=== PATIENT | male | born 1960 | race Caucasian/White ===

== ENCOUNTER → 2016-03-29 | Outpatient (CLI) | payer BC ==
[~2016-03-29] MED LIST: ASPI81TA28 PO; CLON0.5T3 PO; EPP3/2 IM; FLM4 PO; IRBE-37 PO; LXP/20 PO
[2016-03-29 17:59] LABS: ALB/GLOB RATIO 1.1 (0.9-2); ALT/SGPT 49 U/L (12-78); AST/SGOT 38 U/L (15-37); BLOOD UREA NITROGEN 14 mg/dl (7-18); BUN/CREATININE RATIO 15.1 (10-20); CALCIUM 8.6 mg/dl (8.5-10.1); CARBON DIOXIDE 24 mmol/L (21-32); CHLORIDE 105 mmol/L (98-107); GLUCOSE 94 mg/dl (70-99); POTASSIUM 3.7 mmol/L (3.5-5.1); SODIUM 139 mmol/L (136-145); TRIGLYCERIDES 91 mg/dl (0-150); VERY LOW DENSITY LIPOPROT CALC 18 mg/dl
[2016-03-29 18:00] LABS: ALKALINE PHOSPHATASE 126 U/L (45-117); CHOLESTEROL 209 mg/dl (0-200); CHOLESTEROL/HDL RATIO 2.8; HDL CHOLESTEROL 74 mg/dl; LDL CHOLESTEROL CALCULATED 117 mg/dl
== END | disposition home or self-care (01) ==
LOC: C.LABBFT 15:09
PROVIDERS: ATTEND Internal Medicine
DX: E78.00 Pure hypercholesterolemia, unspecified (principal); I10 Essential (primary) hypertension

== ENCOUNTER → 2016-08-31 | Outpatient (CLI) | payer BC ==
--- NOTE | 2016-08-31 15:43 | DIAGNOSTIC IMAGING REPORT ---
TWO VIEW CHEST CLINICAL HISTORY: Malignant melanoma. FINDINGS: PA and lateral chest radiographs are compared to study dated 11/06/2015. The examination is degraded by large body habitus. The cardiomediastinal silhouette is unremarkable. The lungs and pleural spaces are clear. There is no pneumothorax. The bony thorax appears intact. Fusion hardware is partially imaged in the lower cervical spine and the upper lumbar spine. Degenerative change and mild scoliosis is seen in the thoracic spine. IMPRESSION: No active disease in the chest. Electronically signed by: Mike Butler M.D. 08/31/2016 3:42 PM Dictated Date/Time: 08/31/2016 3:41 PM
[2016-08-31 16:28] LABS: BASO % 0.7 %; BASO ABS # 0.04 K/uL (0-0.2); COMPLETE YES; EOS % 4.6 %; HEMATOCRIT 38.9 % (42-52); IG% 0.2 %; LYMPH % 17.7 %; LYMPH ABS # 1.04 K/uL (1.2-3.4); MEAN CELL VOLUME 98.7 fL (80-100); MEAN CORPUSCULAR HGB CONC 34.4 g/dl (32-36); MEAN PLATELET VOLUME 8.7 fL (7.4-10.4); MONO % 8.2 %; NEUT % 68.6 %; PLATELET COUNT 228 K/uL (130-400); RED BLOOD COUNT 3.94 M/uL (4.7-6.1); WHITE BLOOD COUNT 5.86 K/uL (4.8-10.8)
[2016-08-31 16:55] LABS: ALT/SGPT 43 U/L (12-78); AST/SGOT 39 U/L (15-37); BLOOD UREA NITROGEN 14 mg/dl (7-18); BUN/CREATININE RATIO 13.6 (10-20); CALCIUM 8.8 mg/dl (8.5-10.1); CARBON DIOXIDE 27 mmol/L (21-32); CHLORIDE 111 mmol/L (98-107); CREATININE 0.99 mg/dl (0.60-1.40); GLUCOSE 93 mg/dl (70-99); SODIUM 143 mmol/L (136-145)
[2016-08-31 16:57] LABS: ALKALINE PHOSPHATASE 136 U/L (45-117)
== END | disposition home or self-care (01) ==
LOC: C.RAD1850 15:19
PROVIDERS: ATTEND Dermatology
DX: C43.59 Malignant melanoma of other part of trunk (principal)

== ENCOUNTER → 2016-09-16 | Outpatient (CLI) | payer BC ==
[2016-09-16 12:25] LABS: BASO % 0.3 %; BASO ABS # 0.02 K/uL (0-0.2); COMPLETE YES; EOS % 1.3 %; HEMATOCRIT 44.3 % (42-52); IG% 0.1 %; LYMPH % 12.1 %; LYMPH ABS # 0.94 K/uL (1.2-3.4); MEAN CELL VOLUME 98.9 fL (80-100); MEAN CORPUSCULAR HEMOGLOBIN 34.6 pg (25-34); MEAN PLATELET VOLUME 9.3 fL (7.4-10.4); MONO % 5.2 %; PLATELET COUNT 256 K/uL (130-400); RED BLOOD COUNT 4.48 M/uL (4.7-6.1); WHITE BLOOD COUNT 7.74 K/uL (4.8-10.8)
[2016-09-16 12:59] LABS: FERRITIN 110.4 ng/ml (8.0-388.0)
== END | disposition home or self-care (01) ==
LOC: C.LABBFT 10:13
PROVIDERS: ATTEND Internal Medicine
DX: D64.9 Anemia, unspecified (principal)

== ENCOUNTER → 2016-11-03 | Day surgery (SDC) | payer BC ==
[2016-10-25 11:40] VITALS: Ht 180.3 cm; Wt 90.9 kg
[~2016-11-03] VITALS: Ht 180.3 cm; Wt 90.9 kg
[~2016-11-03] MED LIST changes: +EpHEDrine SULFATE 50MG/5ML SYR ONE; -FLM4 PO; +LIDOCAINE HCL 2% 2 ML VIAL (20MG/ML) ONE; -LXP/20 PO; +PROPOFOL IV EMULSION 10 MG/ML 20 ML VIAL IV ONE
--- NOTE | 2016-11-03 10:15 | Endo History and Physical ---
History & Physical Date of Service: Nov 03, 2016. Chief Complaint: HX OF POLYPS, SCREENING FOR COLON CANCER Referring Physician: DR. CASTILLO History of Present Illness 56 yo CM who presents for colonoscopy secondary to history of colon polyps. Past Surgical History Hx Cardiac Surgery: No Hx Internal Defibrillator: No Hx Pacemaker: No Hx Abdominal Surgery: No Hx of Implantable Prosthesis: No Hx Post-Op Nausea and Vomiting: No Hx Cancer Surgery: Yes (SKIN CANCER REMOVALS) Hx Thoracic Surgery: No Hx Orthopedic: Yes (LOW BACK SURGERY 1980, LT SHOULDER, LT KNEE) Hx Urinary Tract Surgery: No Family History None Social History Smoking Status: Never Smoker Hx Substance Use: No Hx Alcohol Use: Yes (OCCASIONAL) Allergies Coded Allergies: BEE STING (Verified Allergy, Severe, FACIAL SWELLING, 11/03/16) Penicillins (Verified Allergy, Unknown, UNKNOWN - HAPPENED WHEN YOUNGER, ) Current Medications Reported Home Medications Medications Dose Route/Sig Max Daily Dose Days Date Category Klonopin (Clonazepam) 0.5 Mg Tab 0.5 Mg PO BID PRN 10/25/16 Reported Avapro (Irbesartan) 150 Mg Tab 150 Mg PO QAM 10/25/16 Reported Epipen 2-Baldemar (Epinephrine) 0.3 Mg Inj 0.3 Mg IM UD PRN 09/08/14 Reported Vital Signs Weight (Kilograms): 90.91 Height (Feet): 5 Height (Inches): 11 Date Time Temp Pulse Resp B/P (MAP) Pulse Ox O2 Delivery O2 Flow Rate FiO2 11/03/16 09:57 36.3 81 18 166/96 (119) 95 Room Air Physical Exam General Appearance: WD/WN, no apparent distress Respiratory/Chest: Auscultation: breath sounds normal Cardiovascular: Heart Auscultation: RRR Abdomen: Bowel Sounds: normal Inspection & Palpation: soft, non-distended, no tenderness, guarding & rebound Assessment and Plan Assessment: 56 yo CM who presents for colonoscopy secondary to history of colon polyps. Plan: Proceed with colonoscopy.
--- NOTE | 2016-11-03 10:48 | Discharge Instructions ---
Endoscopy Patient Instructions Date / Procedure(s) Performed Nov 03, 2016. Colonoscopy Allergy Information Coded Allergies: BEE STING (Verified Allergy, Severe, FACIAL SWELLING, 11/03/16) Penicillins (Verified Allergy, Unknown, UNKNOWN - HAPPENED WHEN YOUNGER, ) Discharge Date / Findings Nov 03, 2016. Colon polyps Diverticulosis Internal hemorrhoids Medication Instructions OK to resume all medications today as prescribed Reported Home Medications Medications Dose Route/Sig Max Daily Dose Days Date Category Klonopin (Clonazepam) 0.5 Mg Tab 0.5 Mg PO BID PRN 10/25/16 Reported Avapro (Irbesartan) 150 Mg Tab 150 Mg PO QAM 10/25/16 Reported Epipen 2-Baldemar (Epinephrine) 0.3 Mg Inj 0.3 Mg IM UD PRN 09/08/14 Reported Provider Instructions Activity Restrictions - No exercising or heavy lifting for 24 hours. - Do not drink alcohol the day of the procedure. - Do not drive a car or operate machinery until the day after the procedure. - Do not make any important decisions or sign important papers in 24 hours after the procedure. Following Day: - Return to full activity which may include returning to work/school. Diet Start your diet with liquids and light foods (jello, soup, juice, toast). Then eat your usual diet if not nauseated. Treatment For Common After Affects For mild abdominal pain, bloating, or excessive gas: - Rest - Eat lightly - Lie on right side Follow-Up Information Follow-up with DR. CASTILLO as scheduled Anesthesia Information What You Should Know You have had a procedure that required some medicine to reduce anxiety and discomfort. This treatment is called moderate sedation. After receiving the treatment, you may be sleepy, but you will be able to breathe on your own. The effects of the treatment may last for several hours. Follow these instructions along with Activity/Diet recommendations noted above: * Do NOT do anything where dizziness or clumsiness would be dangerous. * Rest quietly at home today, then you can be up and about tomorrow. * Have a responsible person stay with you the rest of today. * You may have had an I.V. today. If so, you may take the dressing off later today. Recommendations Call your doctor if: * Trouble breathing * Continuous vomiting for more than 24 hours * Temperature above 101 degrees * Severe abdominal pain or bloating * Pain not relieved by pain medicine ordered * There is increased drainage or redness from any incision * A large amount of rectal bleeding greater than 2-3 tablespoons. (If you had a polyp/s removed or have hemorrhoids, a small amount of blood - from the rectum is to be expected.) * You have any unanswered questions or concerns. IN THE EVENT OF A SERIOUS EMERGENCY, GO TO THE NEAREST EMERGENCY ROOM Your discharge instructions were prepared by provider Martin Angulo. Patient Instructions Signature Page Finesse Adams Patient (or Guardian) Signature/Date: I have read and understand the instructions given to me by my caregivers. Caregiver/RN/Doctor Signature/Date: The above-named patient and/or guardian has received patient instructions on this date. + Original Patient Signature Page (only) stays with chart. Please make copy for patient.
--- NOTE | 2016-11-03 10:57 | GI REPORT ---
Procedure Date: 11/03/2016 10:17 AM Procedure: Colonoscopy Indications: Screening for colorectal malignant neoplasm Medicines: Monitored Anesthesia Care Complications: No immediate complications. Estimated Blood Loss: Estimated blood loss: none. Procedure: Pre-Anesthesia Assessment: - Prior to the procedure, a History and Physical was performed, and patient medications and allergies were reviewed. The patient's tolerance of previous anesthesia was also reviewed. The risks and benefits of the procedure and the sedation options and risks were discussed with the patient. All questions were answered, and informed consent was obtained. Prior Anticoagulants: The patient has taken no previous anticoagulant or antiplatelet agents. ASA Grade Assessment: II - A patient with mild systemic disease. After reviewing the risks and benefits, the patient was deemed in satisfactory condition to undergo the procedure. After I obtained informed consent, the scope was passed under direct vision. Throughout the procedure, the patient's blood pressure, pulse, and oxygen saturations were monitored continuously. The scope was introduced through the anus and advanced to the terminal ileum. The colonoscopy was performed without difficulty. The patient tolerated the procedure well. The quality of the bowel preparation was good. The terminal ileum, ileocecal valve, appendiceal orifice, and rectum were photographed. Findings: A 4 mm polyp was found in the cecum. The polyp was sessile. The polyp was removed with a cold snare. Resection and retrieval were complete. A 2 mm polyp was found in the cecum. The polyp was sessile. The polyp was removed with a cold biopsy forceps. Resection and retrieval were complete. A 5 mm polyp was found in the descending colon. The polyp was sessile. The polyp was removed with a cold snare. Resection and retrieval were complete. Multiple small-mouthed diverticula were found in the sigmoid colon. Non-bleeding internal hemorrhoids were found during retroflexion. The hemorrhoids were small. Impression: - One 4 mm polyp in the cecum, removed with a cold snare. Resected and retrieved. - One 2 mm polyp in the cecum, removed with a cold biopsy forceps. Resected and retrieved. - One 5 mm polyp in the descending colon, removed with a cold snare. Resected and retrieved. - Diverticulosis in the sigmoid colon. - Non-bleeding internal hemorrhoids. Recommendation: - Resume previous diet. - Continue present medications. - Repeat colonoscopy for surveillance based on pathology results. - Return to primary care physician as previously scheduled. Martin Angulo DO 11/03/2016 10:57:08 AM This report has been signed electronically. Note Initiated On: 11/03/2016 10:17 AM I attest to the content of the Intraoperative Record and orders documented therein, exceptions below
[2016-11-03 11:05] VITALS: BP 145/81; PULSE 72; O2SAT 95
--- NOTE | 2016-11-03 11:32 | Anesthesiology Progress Note ---
Anesthesia Post Op Note Date & Time Nov 03, 2016 at 11:32 Vital Signs Pain Intensity: 0 Vital Signs Past 12 Hours Date Time Temp Pulse Resp B/P (MAP) Pulse Ox O2 Delivery O2 Flow Rate FiO2 11/03/16 11:05 72 20 145/81 (102) 95 Room Air 11/03/16 10:55 76 20 137/79 (98) 95 Room Air 11/03/16 10:45 75 16 94/54 (67) 97 Room Air 11/03/16 09:57 36.3 81 18 166/96 (119) 95 Room Air Notes Mental Status: alert / awake / arousable, participated in evaluation Pt Amnestic to Procedure: Yes Nausea / Vomiting: adequately controlled Pain: adequately controlled Airway Patency, RR, SpO2: stable & adequate BP & HR: stable & adequate Hydration State: stable & adequate Anesthetic Complications: no major complications apparent
== END | disposition home or self-care (01) ==
LOC: C.GI 09:26
PROVIDERS: ATTEND Internal Medicine
DX: Z12.11 Encounter for screening for malignant neoplasm of colon (principal); D12.0 Benign neoplasm of cecum; D12.4 Benign neoplasm of descending colon; K57.30 Diverticulosis of large intestine without perforation or abscess without bleeding; K64.8 Other hemorrhoids; Z86.010 Personal history of colon polyps; Z85.820 Personal history of malignant melanoma of skin; I10 Essential (primary) hypertension; M19.90 Unspecified osteoarthritis, unspecified site; F41.9 Anxiety disorder, unspecified

== ENCOUNTER → 2017-03-21 | Outpatient (CLI) | payer BC ==
[~2017-03-21] MED LIST changes: -ASPI81TA28 PO; -EpHEDrine SULFATE 50MG/5ML SYR ONE; -LIDOCAINE HCL 2% 2 ML VIAL (20MG/ML) ONE; -PROPOFOL IV EMULSION 10 MG/ML 20 ML VIAL IV ONE
[2017-03-21 12:32] LABS: HEMATOCRIT 41.8 % (42-52); HEMOGLOBIN 14.7 g/dL (14.0-18.0); MEAN CELL VOLUME 97.4 fL (80-100); MEAN CORPUSCULAR HEMOGLOBIN 34.3 pg (25-34); MEAN CORPUSCULAR HGB CONC 35.2 g/dl (32-36); MEAN PLATELET VOLUME 9.4 fL (7.4-10.4); PLATELET COUNT 224 K/uL (130-400); RED CELL DISTRIBUTION WIDTH CV 11.9 % (11.5-14.5); RED CELL DISTRIBUTION WIDTH SD 42.2 fL (36.4-46.3); WHITE BLOOD COUNT 4.58 K/uL (4.8-10.8)
[2017-03-21 13:47] LABS: ALBUMIN 3.6 gm/dl (3.4-5.0); ALT/SGPT 37 U/L (12-78); BLOOD UREA NITROGEN 13 mg/dl (7-18); CALCIUM 8.8 mg/dl (8.5-10.1); CARBON DIOXIDE 25 mmol/L (21-32); CHOLESTEROL 197 mg/dl (0-200); CREATININE 0.84 mg/dl (0.60-1.40); GLUCOSE 100 mg/dl (70-99); POTASSIUM 4.3 mmol/L (3.5-5.1); SODIUM 138 mmol/L (136-145)
[2017-03-21 13:52] LABS: ALKALINE PHOSPHATASE 130 U/L (45-117); AST/SGOT 35 U/L (15-37); LDL CHOLESTEROL CALCULATED 113 mg/dl; TOTAL PROTEIN 7.5 gm/dl (6.4-8.2)
== END | disposition home or self-care (01) ==
LOC: C.LABBFT 08:03
PROVIDERS: ATTEND Nurse Practitioner
DX: E78.00 Pure hypercholesterolemia, unspecified (principal); E83.10 Disorder of iron metabolism, unspecified; Z12.5 Encounter for screening for malignant neoplasm of prostate

== ENCOUNTER → 2017-03-22 | Outpatient (CLI) | payer BC | END | disposition home or self-care (01) | LOC: C.LABBFT 12:18 | PROVIDERS: ATTEND Internal Medicine | DX: M25.50 Pain in unspecified joint (principal); R53.83 Other fatigue ==

== ENCOUNTER → 2017-09-23 | Outpatient (CLI) | payer BC ==
[~2017-09-23] MED LIST changes: -CLON0.5T3 PO; +KLN/5 PO
--- NOTE | 2017-09-23 09:04 | DIAGNOSTIC IMAGING REPORT ---
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 FINDINGS: The lungs are clear. The heart is normal in size. Mildly tortuous thoracic aorta, unchanged. Cervical spinal fusion hardware is again noted. Degenerative changes within the thoracic spine. IMPRESSION: No significant change compared to the prior study. No acute process. Electronically signed by: Gerald Aleman M.D. 09/23/2017 9:03 AM Dictated Date/Time: 09/23/2017 9:01 AM
[2017-09-23 09:52] LABS: BASO % 0.9 %; BASO ABS # 0.05 K/uL (0-0.2); EOS % 5.3 %; EOS ABS # 0.28 K/uL (0-0.5); HEMATOCRIT 39.6 % (42-52); IG# 0.01 K/uL (0.00-0.02); LYMPH % 19.9 %; LYMPH ABS # 1.05 K/uL (1.2-3.4); MEAN CELL VOLUME 97.1 fL (80-100); MEAN CORPUSCULAR HEMOGLOBIN 34.3 pg (25-34); MEAN CORPUSCULAR HGB CONC 35.4 g/dl (32-36); MEAN PLATELET VOLUME 9.5 fL (7.4-10.4); MONO % 6.6 %; MONO ABS # 0.35 K/uL (0.11-0.59); NEUT % 67.1 %; NEUT ABS # 3.53 K/uL (1.4-6.5); PLATELET COUNT 254 K/uL (130-400); RED CELL DISTRIBUTION WIDTH CV 11.8 % (11.5-14.5); RED CELL DISTRIBUTION WIDTH SD 42.3 fL (36.4-46.3); WHITE BLOOD COUNT 5.27 K/uL (4.8-10.8)
[2017-09-23 10:06] LABS: BLOOD UREA NITROGEN 14 mg/dl (7-18); CALCIUM 8.5 mg/dl (8.5-10.1); CARBON DIOXIDE 22 mmol/L (21-32); CREATININE 0.83 mg/dl (0.60-1.40); GLUCOSE 133 mg/dl (70-99); POTASSIUM 3.9 mmol/L (3.5-5.1); SODIUM 135 mmol/L (136-145)
== END | disposition home or self-care (01) ==
LOC: C.CPL 08:14
PROVIDERS: ATTEND Surgery
DX: D49.2 Neoplasm of unspecified behavior of bone, soft tissue, and skin (principal)

== ENCOUNTER 2019-02-23 06:35 | Observation (INO) ==
--- NOTE | 2019-01-19 10:55 | PAT Medication Instructions ---
Medication Instructions Date of Service January 19, 2019 Home Medications Medication Instructions Recorded epinephrine 0.3 mg/0.3 mL 0.3 ml IM UD #2 ea 10/11/18 injection, auto-injector vardenafil 20 mg tablet 20 mg PO DAILY PRN #9 tab 10/11/18 epinephrine 0.3 mg/0.3 mL injection, auto-injector 0.3 ml IM UD vardenafil 20 mg tablet 20 mg PO DAILY PRN amlodipine 5 mg PO QAM clonazepam 0.5 mg PO BID PRN irbesartan 300 mg PO QAM multivitamin 1 tab PO DAILY pravastatin 20 mg PO 1200 Continue as directed epinephrine 0.3 mg/0.3 mL injection, auto-injector 0.3 ml IM UD DO NOT take the morning of surgery vardenafil 20 mg tablet 20 mg PO DAILY PRN irbesartan 300 mg PO QAM multivitamin 1 tab PO DAILY Take morning of surgery With a small sip of water, OTHERWISE NOTHING TO EAT OR DRINK AFTER MIDNIGHT: amlodipine 5 mg PO QAM clonazepam 0.5 mg PO BID PRN (if needed) pravastatin 20 mg PO 1200 Other Notes If you have any questions please call us at [phone] or [phone] or [phone] or [phone]
--- NOTE | 2019-01-19 11:44 | Anesthesiology Consultation ---
Date of Service January 19, 2019 Assessment & Plan (1) Encounter for pre-operative examination: Chart Review Chart Review: Acceptable Risk for Surgery and Patient seen in Pre Admission Testing Teaching & Discussion Instructed NPO after midnight before surgery, except medications with 15 cc of water. Medication instructions provided according to the PAT guidelines. History Surgery Operation Date: 02/23/19 08:50 Proposed Procedures p Right Total Hip Replacement - iNcholas Daugherty MD Height/Weight Height: 5 ft 11 in Weight: 95 kg Allergies Allergy/AdvReac Type Severity Reaction Status Date / Time bee venom protein (honey bee) Allergy Severe FACIAL Verified 01/19/19 10:21 SWELLING Penicillins Allergy Unknown UNKNOWN - Verified 01/19/19 10:21 HAPPENED WHEN YOUNGER Medications Home Medications Medication Instructions Recorded Confirmed Last Taken epinephrine 0.3 mg/0.3 mL 0.3 ml IM UD #2 ea 10/11/18 01/19/19 Unknown injection, auto-injector vardenafil 20 mg tablet 20 mg PO DAILY PRN #9 tab 10/11/18 01/19/19 Unknown amlodipine 5 mg PO QAM 01/18/19 01/19/19 Unknown clonazepam 0.5 mg PO BID PRN 01/18/19 01/19/19 Unknown irbesartan 300 mg PO QAM 01/18/19 01/19/19 Unknown multivitamin 1 tab PO DAILY 01/18/19 01/19/19 Unknown pravastatin 20 mg PO 1200 01/18/19 01/19/19 Unknown Past Medical History Medical History Anxiety and depression Bunion, left (Acute) Degenerative joint disease of right hip GERD (gastroesophageal reflux disease) Hypercholesterolemia (Chronic) Hypertension (Chronic) Liver problem Congenitally small L hepatic lobe. Fatty liver dz. Malignant melanoma of back (Acute) REMOVED Osteoarthritis Exercise / Class Metabolic Activity II 4-5 Yardwork/Stairs/Walk up hill (Denies CP or SOB with 1 FOS) Past Family History Family History Sister Family history of diabetes mellitus Grandmother (Paternal) Family history of diabetes mellitus Past Surgical History Surgical History Fusion of spine LUMBAR CERVICAL (GOOD ROM) History of appendectomy History of colonoscopy Hx of knee surgery LEFT Hx of shoulder surgery RT/LEFT [place] teeth removed Past Anesthesia History No Hx of Anesthesia Complications and No Family Hx of Anesthesia Complications History of PONV No Hx of PONV and No Hx of Motion Sickness Social History tobacco type: smokeless tobacco Do You Dip or Chew Tobacco: Yes (1 CAN EVERY 3 DAYS (ADVISED)) Hx Alcohol Use: Yes Alcohol type: beer alcohol intake frequency: a few times a week Hx Substance Use: No substance use type: does not use Review of Systems Pt denies any recent chest pain, shortness of breath, palpitations, cough, fever or URI. Physical Exam Vital Signs BP: 143/83 P: 78bpm SPO2: 95% RA T: 98.3 F R: 16 ENMT Mouth: + dentures (partial lower); no chipped teeth and no loose teeth Thyromental Distance: > or= 3.5 Finger Breadths (4) Mallampati Class: I Neck normal visual inspection; neck extension not limited Respiratory normal respiratory effort Auscultation: lungs clear to auscultation bilaterally Cardiovascular Rate/Rhythm: regular rate and regular rhythm Heart Sounds: no murmur Vessels: no carotid bruit Extremities: no edema Testing Laboratory Results 01/19/19 11:55 01/19/19 11:55 PT 9.8 Seconds (9.0-12.0) 01/19/19 11:55 INR 1.0 (0.9-1.1) 01/19/19 11:55 APTT 27.9 Seconds (21.0-31.0) 01/19/19 11:55 Blood Type O Negative 01/19/19 11:55 Antibody Screen NEGATIVE 01/19/19 11:55 Electrocardiogram Date: 01/19/19 Findings: + NSR @ (74) Chest X-Ray Date: 01/19/19 Findings: + NAD
--- NOTE | 2019-01-19 12:16 | XRay Report ---
XR chest Pre-admission PA/Lat CLINICAL HISTORY: Preoperative chest COMPARISON STUDY: 11/06/2015 FINDINGS: The heart is normal in size. There is aortic tortuosity. There is no failure. There is no f ocal parenchymal consolidation. There are no pleural effusions. Postsurgical changes are present with in the cervical spine.[ IMPRESSION: No active disease in the chest. Electronically signed by: Immanuel Paniagua M.D. 01/19/2019 12:15 PM
[2019-01-19 12:20] LABS: Basophils # (auto) 0.03 K/uL (0-0.2); Basophils % (auto) 0.5 %; Eosinophils # (auto) 0.07 K/uL (0-0.5); Eosinophils % (auto) 1.2 %; Hematocrit (blood only) 39.5 % (42-52); Hemoglobin 13.7 g/dL (14.0-18.0); Lymphocytes # (auto) 0.89 K/uL (1.2-3.4); Lymphocytes % (auto) 15.7 %; Mean Corpuscular Hemoglobin 34.3 pg (25-34); Mean Corpuscular Hgb Conc 34.7 g/dL (32-36); Mean Platelet Volume 7.9 fL (7.4-10.4); Monocytes # (auto) 0.43 K/uL (0.11-0.59); Monocytes % (auto) 7.6 %; Neutrophils # (auto) 4.25 K/uL (1.4-6.5); Platelet Count 233 K/uL (130-400); RDW Coefficient of Variation 11.8 % (11.5-14.5); RDW Standard Deviation 42.7 fL (36.4-46.3); Red Blood Count 3.99 M/uL (4.7-6.1); White Blood Count 5.67 K/uL (4.8-10.8)
[2019-01-19 12:37] LABS: Partial Thromboplastin Time 27.9 Seconds (21.0-31.0); Prothrombin Time 9.8 Seconds (9.0-12.0)
[2019-01-19 13:43] LABS: BUN Creatinine Ratio 9.9 (10-20); Calcium 9.2 mg/dl (8.5-10.1); Creatinine Clr Calc Pharmacy 118.5 ml/min; Est GFR (African American) 113.7; Est GFR (Non-African American) 98.1; Potassium 4.5 mmol/L (3.5-5.1)
--- NOTE | 2019-02-17 14:29 | History and Physical Report ---
DATE OF ADMISSION: 02/23/2019 CHIEF COMPLAINT: Right hip pain. 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 He has a 1-year history of significantly increasing hip pain and discomfort that has gradually just gotten worse over time. He describes lateral hip pain, groin pain radiating down to his thigh, into his knee. No further than that. Denies any numbness. He does have a history of a pretty extensive back surgery in the done at [facility] and has done reasonably well from that. He has noticed that he is limping more and more as time goes on and more as the day goes on. He takes various anti-inflammatories with minimal relief. He has difficulty putting his shoes and socks on. He has nighttime pain. He would like to have his hip fixed. PAST MEDICAL HISTORY: 1. Elevated cholesterol. 2. Hypertension. 3. Significant alcohol intake with 12 drinks per week. PAST SURGICAL HISTORY: Include: 1. Left knee arthroscopy done by Dr. Mcmahon. 2. Bilateral shoulder surgery done by Dr. Peña. 3. Back surgery x2, last one done by Dr. López in the s in [place]. ALLERGIES: PENICILLIN, REACTIONS UNKNOWN. CURRENT MEDICINES: Include: 1. Amlodipine 5 mg. 2. Clonazepam 0.5 mg twice a day as needed. 3. Irbesartan 300 mg a day. 4. Multivitamin. 5. Pravastatin 20 mg. 6. Levitra 20 mg a day p.r.n. SOCIAL HISTORY: A 58-year-old male. He is from [place]. 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 Fairly sedentary job. 12 drinks per week. Does not smoke. FAMILY HISTORY: Noncontributory. REVIEW OF SYSTEMS: Negative for diabetes, neurologic problem, vascular problems or bleeding disorders. Denies any chest pain or shortness of breath. No history of DVT or PE. No known bleeding problems. PHYSICAL EXAMINATION: GENERAL: Shows a pleasant, middle-aged male. Looks to be in pretty good health. HEENT: Benign. NECK: Supple, no lymphadenopathy. LUNGS: Clear to auscultation. HEART: Regular rate and rhythm. ABDOMEN: Soft, nontender, nondistended. EXTREMITIES: Grossly neurovascularly intact except as follows. Examination of the right leg reveals the patient walks with a slight bit of a limp. Leg lengths appear clinically equal. He has a fairly stiff hip with internal rotation to neutral at best. This recreates his pain. External rotation to 20 degrees. No knee effusion. He is neurologically intact. X-RAYS: X-rays of the right hip were reviewed. Shows advanced right hip DJD. He has got complete loss of superior joint space with cystic changes on both sides of the joint.. He does have some subchondral sclerosis. He does have an extensive back fusion. ASSESSMENT: A 58-year-old male with advanced right hip degenerative joint disease of 1 year duration and progressive and unresponsive to conservative treatment. He does have significant back surgery in the past but back seems to be doing well. PLAN: We talked about treatment. He would like to have his right hip replaced. We will take him to the operating room and do right total hip replacement. The risks and benefits of this procedure were explained to the patient including but not limited to DVT, PE, , infection, neurological injury, vascular injury, bleeding problem, pain, limited range of motion, stiffness, failure to relieve symptoms, incomplete relief of symptoms, need for further surgery in future, fracture, leg length inequality, nerve palsy, dislocation, need for revision surgery, need for blood transfusion. The patient understands and desires to proceed. Informed consent was obtained. I did tell him he is at increased risk for dislocation due to his extensive back fusion. We will try and account for this and antevert the cup a little bit more than usual. He does have significant alcohol intake and will likely use some DVT prophylaxis while he is in the hospital. He is planning to be discharged home using [facility]. AGNIESZKA
[~2019-02-23 06:35] MED LIST changes: +ACETAMINOPHEN 500 MG TAB PO SCH; +BUPIVACAINE 0.5 % 5 MG/1 ML PF 10ML VIAL ONE; +CEFAZOLIN 2000MG 2,000 MG/15 ML SYR IV SCH; -EPP3/2 IM; +FAMOTIDINE 20 MG TAB PO SCH; +GABAPENTIN 600 MG DOSE PO SCH; -IRBE-37 PO; -KLN/5 PO; +LR 15ML/HR IV SCH; +LR 60ML/HR IV SCH; +METOCLOPRAMIDE HCL 10 MG TABLET PO SCH; +SCOPOLAMINE 1.5 MG TDSY TD SCH; +TRANEXAMIC ACID 1,000 MG **IV Pre-op IV SCH
--- NOTE | 2019-02-23 06:52 | History & Physical Bridge Note ---
Date of Service February 23, 2019 History & Physical Bridge Note I have examined the patient, reviewed the History & Physical and in the interval since the performance of the History & Physical I have noted the following changes of clinical significance: no changes noted
[2019-02-23] MEDS ORDERED: MIDAZOLAM HCL 1 MG/ML 2ML VIAL ONE ×3 (07:12→08:20)
[2019-02-23] MEDS ORDERED: MoRPHine SULFATE PF 1 MG/ML 10 ML AMP/VIAL ONE (07:17)
[2019-02-23] MEDS ORDERED: fentaNYL citrate 100 MCG/2 ML VIAL ONE (08:20)
[2019-02-23] MEDS ORDERED: BACITRACIN INJ 50,000 UNIT VIAL ONE (08:36)
[2019-02-23] MEDS ORDERED: BUPIVACAINE/EPINEPHRINE 0.5% MPF 1:200,000 10 ML VIAL ONE (08:36)
[2019-02-23] MEDS ORDERED: ATROPINE SULFATE 0.1 MG/ML 10ML SYR IV PRN (08:42)
[2019-02-23] MEDS ORDERED: LABETALOL HCL IV 5 MG/ML 20ML IV PRN (08:42)
[2019-02-23] MEDS ORDERED: fentaNYL citrate 100 MCG/2 ML VIAL IV PRN (08:42)
[2019-02-23] MEDS ORDERED: HYDROmorphone INJ 1 MG/ML SYRINGE IV PRN (08:42)
[2019-02-23] MEDS ORDERED: ONDANSETRON INJ 2 MG/ML 2 ML VIAL IV PRN ×2 (08:42→13:43)
[2019-02-23] MEDS ORDERED: ePHEDrine sulfate 50 MG/ML AMP IV PRN (08:42)
[2019-02-23] MEDS ORDERED: PHENYLEPHRINE 100MCG/ML 5ML SYR IV PRN (08:42)
[2019-02-23] MEDS ORDERED: PROPOFOL IV EMULSION 10 MG/ML 20 ML VIAL IV ONE (09:52)
[2019-02-23] MEDS ORDERED: ePHEDrine sulfate 50 MG/ML AMP ONE (09:53)
--- NOTE | 2019-02-23 10:16 | Post Operative Brief Note ---
PG Immediate Post Op with CF Date of Surgery February 23, 2019 Pre & Post Diagnosis Operation Date: 02/23/19 08:50 Pre-Op Diagnosis: Right Hip Degenerative Joint Disease Post-Op Diagnosis: Right Hip Degenerative Joint Disease I identified the patient and participated in the time-out.: Yes Procedure Operation Date: 02/23/19 08:50 Actual Procedures p Right Total Hip Replacement(Right) - Nicholas Daugherty MD Surgeon Nicholas Daugherty MD Lpn Instructor Noe, PAC Estimated Blood Loss 200 Findings Consistent with Post-Op Diagnosis Fluids 1500 cc Specimens Specimen Description: Permanent Solution: A: Right femoral head Drains Baker Catheter (16 belarusian 10 ml balloon) Anesthesia Type Spinal MAC Complications none Disposition Accompanied Patient To Recovery: Yes Disposition: Recovery Room
--- NOTE | 2019-02-23 10:55 | Anesthesiology Progress Note ---
Date of Service February 23, 2019 Anesthesia Post Procedure Vital Signs Vital Signs: Temp Pulse Pulse Resp BP Pulse Ox 02/23/19 10:45 78 21 105/61 98 02/23/19 10:35 78 20 88/56 L 96 02/23/19 10:25 75 17 85/55 L 96 02/23/19 10:18 36 C L 82 21 88/61 L 97 02/23/19 06:54 36.8 C 70 18 140/91 96 Pain Intensity Right Hip: Pain Intensity: 3 Transfer of Care Handoff Completed per policy Notes Mental Status: alert / awake / arousable Patient Amnestic to Procedure: Yes Nausea / Vomiting: adequately controlled Pain: adequately controlled Airway Patency, RR, SpO2: stable & adequate BP & HR: stable & adequate Hydration State: stable & adequate Neuraxial Anesthesia: was administered and sensory block is resolving Anesthetic Complications: no major complications apparent and Pt Satisfied with anesthetic care
--- NOTE | 2019-02-23 11:07 | XRay Report ---
XR hip 1V RT w pelvis CLINICAL HISTORY: IN PACU - A/P PELVIS and LATERAL HIP COMPARISON: None. DISCUSSION: Anatomic alignment posttotal right hip arthroplasty. Good contact between prosthetic and underlying bone. No evidence for acetabular protrusion. IMPRESSION: Anatomic alignment post total right hip arthroplasty. ACT 112: Negative or not required by law. The above report was generated using voice recognition software. It may contain grammatical, syntax or spelling errors. Electronically signed by: Valdez Salinas M.D. 02/23/2019 11:05 AM
[2019-02-23] MEDS ORDERED: TAMSULOSIN HCL 0.4 MG CAP PO PRN (11:18)
[2019-02-23] MEDS ORDERED: HYDROmorphone HCL 2 MG TAB PO PRN (11:18)
[2019-02-23] MEDS ORDERED: ALUMINUM/MAGNESIUM SUSP 30 ML UDC PO PRN (11:18)
[2019-02-23] MEDS ORDERED: bisacodyL 10 MG SUPP PR PRN (11:18)
[2019-02-23] MEDS ORDERED: VARDENAFIL PO PRN (11:18)
[2019-02-23] MEDS ORDERED: METOCLOPRAMIDE HCL INJ 5 MG/ML 2 ML VIAL IV PRN (11:18)
[2019-02-23] MEDS ORDERED: clonazePAM 0.5 MG TAB PO PRN (11:18)
[2019-02-23] MEDS ORDERED: NALOXONE HCL 0.4 MG/1 ML VIAL/CARP IV PRN (11:18)
[2019-02-23] MEDS ORDERED: MAGNESIUM HYDROXIDE SUSP 30 ML UDC PO PRN (11:18)
[2019-02-23] MEDS ORDERED: EPINEPHRINE ADULT AUTO-INJECT 0.3 MG SYR IM SCH (11:18)
[2019-02-23] MEDS: CHECK SCOPOLAMINE PATCH PLACEMENT SCH ×5 (11:57→23:25)
[2019-02-23] MEDS: PRAVASTATIN SOD 20 MG TAB PO SCH (13:39)
[2019-02-23] MEDS: KETOROLAC 30 MG/ML VIAL IV SCH ×3 (13:39→23:24)
[2019-02-23] MEDS: ACETAMINOPHEN 500 MG TAB PO SCH ×2 (13:39→21:25)
[2019-02-23] MEDS: SODIUM CHLORIDE 0.9% 1000ML 1,000 ML IV SCH ×2 (13:39→21:25)
[2019-02-23] MEDS ORDERED: HYDROmorphone INJ 0.5 MG/0.5 ML SYR IV PRN (13:43)
[2019-02-23] MEDS: CEFAZOLIN 2000MG 2,000 MG/15 ML SYR IV SCH ×2 (15:24→23:24)
[2019-02-23] MEDS ORDERED: TRANEXAMIC ACID / 0.7% NACL 1,000 MG/100 ML BAG IV SCH (16:00)
[2019-02-23] MEDS: FERROUS GLUCONATE 324 MG TAB PO SCH (17:46)
[2019-02-23] MEDS: ASCORBIC ACID 500 MG TAB PO SCH (17:46)
--- NOTE | 2019-02-23 18:11 | Operative Report ---
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 Had grade 4 [id number] disease of the femoral head and acetabulum. He had small anterior acetabular osteophytes. He had a moderate to large hip joint effusion. Fluids 1500 cc Specimens Right femoral head sent for pathology. Drains None. Anesthesia Type Spinal MAC Complications none Disposition Accompanied Patient To Recovery: Yes Disposition: Recovery Room Indications Patient is a 79-year-old very active gentleman whose had a several year history of gradually increasing right hip pain discomfort is gotten slightly worse over the past 6 to 12 months. He has been through extensive conservative treatment which became less successful over time. X-rays show advanced hip arthritis. Elected proceed with total hip arthroplasty. Description of Procedure Operative implants consisted of: 1. Biomet size 58 mm G7 acetabular shell. 2. Highly cross-linked polyethylene liner with a 58 mm outer diameter, 36 mm inner diameter with a shook placed inferior and posterior. 3. [place] hole eliminator. 4. 6.5 cancellus acetabular screws 135 mm length and 130 mm in length. 5. [place]ail size 13 KLA femoral stem. 6. +5/36 mm ceramic articular ball. Patient was taken to the operating room identified and placed on the operating table supine position protectors were properly padded. IV antibiotics were 5 by anesthesia team. Spinal anesthetic had been implemented holding area. Baker catheter was placed in sterile fashion. The patient then placed in the left lateral decubitus position. An axillary roll was placed. Stulberg hip positioner was used for positioning. The right hip and leg were then prepped and draped in usual sterile fashion. A posterior lateral approach of the right hip was then performed to over a curvilinear incision centered over the greater trochanter. Sharp dissection was gone through subcutaneous tissue down to the fascia and IT band. The IT band gluteal fascia incised longitudinally in a curvilinear incision in line with the skin incision. The underlying greater trochanter bursa was excised. The piriformis and external rotators were then tagged and taken off the posterior aspect of hip joint capsule. Great care was taken throughout the procedure to protect sciatic nerve at all times. Posterior capsulotomy was then performed leaving a large flap for later repair. Hip was internally rotated and dislocated. Femoral neck osteotomy cut was made with Final Cut felt 10 mm above the lesser trochanter. Femoral head was removed and sent for pathology. The femur was retracted anteriorly. Attention drawn the acetabulum. The acetabular labrum was excised per the pulmonary fat was excised. Sequential reaming the acetabulum was then performed given the size 49 progressing up to 57. A 58 mm Biomet G7 acetabular shell was then placed in about 40 degrees lateral opening and 20 degrees of anteversion. I actually placed in a little bit more anteversion than usual due to his back fusion I want to limit his the risk for dislocation. Small anterior osteophyte was removed. The cup was fixed with 2 screws. Trial liner was placed. Attention drawn the femur. Nipride the proximal femur was entered with a cookie-cutter followed by canal finder. I broached begin the size 8 and progressing up to 13. Got excellent fitted to 13. Calcar reamer was used smooth off the calcar. Then trialed the hip and the +5 articular ball provide full stability in full extension and external rotation flexion to 90 degrees internal rotation over 50 degrees. The soft tissue tension was little bit lax but thought the leg lengths are equal. I did not try the longer neck but I felt this was a bit too long. In order to maximize his stability in flexion I did place a shook inferior and posterior. All trial implants were removed and [place] eliminator was placed. Highly cross- linked polyethylene liner was placed. A size 13 KLA femoral stem was impacted in position followed by a +5/36 mm articular ball. Of note the liner was placed such that the shook was inferior and posterior. Hip was located once again found to be stable. Attention drawn toward closing. Nipride the posterior capsule and external rotators were then repaired through drill holes in the posterior trochanter with #2 Tycron suture. The IT band gluteal fascia then closed with #1 PDS suture in running fashion with subcutaneous tissue then closed with 2 layers the deep layer #1 Vicryl sutures subcutaneous tissues with 2 Dexon suture in a buried interrupted fashion. Skin was closed skin isha. Leg was then cleaned dried a sterile dressing applied Xeroform, 4 x 4's, ABD pads and foam tape was applied. The patient then transferred to the recovery room in stable condition. Patient tolerated procedure well no complications I attest to the content of the Intraoperative Record and any orders documented therein. Any exceptions are noted below.
[2019-02-23] MEDS ORDERED: SENNA 8.6 MG TAB PO SCH (21:00)
[2019-02-23] MEDS: DOCUSATE SODIUM 100 MG CAP PO SCH (21:24)
[2019-02-23] MEDS: TAPENTADOL HCL ER 50 MG TABCR PO SCH (21:24)
[2019-02-23] MEDS: ASPIRIN 81 MG ECTAB PO SCH (21:24)
[2019-02-24 02:29] VITALS: TEMP 98.2
[2019-02-24] MEDS: SODIUM CHLORIDE 0.9% 1000ML 1,000 ML IV SCH (05:10)
[2019-02-24] MEDS: CHECK SCOPOLAMINE PATCH PLACEMENT SCH (05:11)
[2019-02-24] MEDS: KETOROLAC 30 MG/ML VIAL IV SCH ×2 (05:59→11:24)
[2019-02-24] MEDS: ACETAMINOPHEN 500 MG TAB PO SCH (06:00)
[2019-02-24 06:45] LABS: Basophils # (auto) 0.02 K/uL (0-0.2); Basophils % (auto) 0.2 %; Eosinophils # (auto) 0.08 K/uL (0-0.5); Hematocrit (blood only) 32.6 % (42-52); Immature Granulocytes # (auto) 0.02 K/uL (0.00-0.02); Immature Granulocytes % (auto) 0.2 %; Lymphocytes # (auto) 0.43 K/uL (1.2-3.4); Lymphocytes % (auto) 5.3 %; Mean Corpuscular Hemoglobin 33.6 pg (25-34); Mean Corpuscular Hgb Conc 33.7 g/dL (32-36); Mean Corpuscular Volume 99.7 fL (80-100); Monocytes # (auto) 0.51 K/uL (0.11-0.59); Monocytes % (auto) 6.3 %; Neutrophils # (auto) 6.99 K/uL (1.4-6.5); Platelet Count 195 K/uL (130-400); RDW Standard Deviation 44.1 fL (36.4-46.3); Red Blood Count 3.27 M/uL (4.7-6.1); White Blood Count 8.05 K/uL (4.8-10.8)
[2019-02-24 07:20] LABS: Calcium 8.2 mg/dl (8.5-10.1); Creatinine Clr Calc Pharmacy 109.9 ml/min; Est GFR (African American) 110.1; Potassium 4.1 mmol/L (3.5-5.1)
[2019-02-24] MEDS: DOCUSATE SODIUM 100 MG CAP PO SCH (07:40)
[2019-02-24] MEDS: ASCORBIC ACID 500 MG TAB PO SCH (07:40)
[2019-02-24] MEDS: ASPIRIN 81 MG ECTAB PO SCH (07:40)
[2019-02-24] MEDS: FERROUS GLUCONATE 324 MG TAB PO SCH (07:41)
[2019-02-24] MEDS: TAPENTADOL HCL ER 50 MG TABCR PO SCH (07:41)
[2019-02-24 07:51] VITALS: O2SAT 97
[2019-02-24] MEDS ORDERED: chlordiazePOXIDE HCl 25 MG CAP PO PRN (08:43)
[2019-02-24] MEDS ORDERED: TRAMADOL HCL 50 MG TABLET PO PRN (08:45)
[2019-02-24] MEDS ORDERED: FOLIC ACID 1 MG TAB PO SCH (09:00)
[2019-02-24] MEDS ORDERED: MULTIVITAMIN TAB PO SCH ×2 (09:00)
[2019-02-24] MEDS ORDERED: THIAMINE HCL 100 MG TAB PO SCH (09:00)
[2019-02-24] MEDS ORDERED: AMLODIPINE BESYLATE 5 MG TAB PO SCH (09:00)
[2019-02-24] MEDS ORDERED: IRBESARTAN 150 MG TAB PO SCH (09:00)
--- NOTE | 2019-02-24 09:40 | Progress Note ---
DATE: 02/24/2019 SUBJECTIVE: A 59-year-old gentleman postop day 1 from right hip replacement. He is doing well. He has been a little bit confused overnight. He feels like it is related to his pain medicines. He is also pretty impulsive. No chest pain or shortness of breath. He says his pain in his hip is minimal. OBJECTIVE: VITAL SIGNS: Temperature 36.8. Vital signs stable. GENERAL: Shows a pleasant, middle-aged male. He is sitting up in his bedside chair. He looks comfortable. EXTREMITIES: Examination of the right hip reveals the leg lengths to be equal. Dressing is clean, dry and intact. Hip is located. He is neurologically intact. LABORATORY DATA: Hemoglobin 11.0. Hematocrit 32.6. Electrolytes are stable. ASSESSMENT: A 59-year-old gentleman postop day 1 from right hip replacement, doing quite well. Pain is controlled. Hip is located. He is a little bit confused, could be related to some medicines. He is also pretty significant drinker and certainly could be some early signs of withdrawal. He seems pretty good this morning. He is awake, alert and appropriate and oriented. PLAN: 1. DVT prophylaxis including thigh-high TEDs, SCDs, and aspirin twice a day. 2. PT/OT. Weight bear as tolerated. Right total hip protocol. 3. Pain control. We are going to stop his narcotic pain medicines to try and limit confusion issues. 4. Alcohol use. We will put him on DT prophylaxis. Best thing for him might be to go home in his comfortable environment. 5. Disposition: We are going to see how therapy goes and is confused this morning. The plan is to discharge to home with some home health once medically stable.
[2019-02-24 10:31] VITALS: PULSE 99
[2019-02-24] MEDS: PRAVASTATIN SOD 20 MG TAB PO SCH (12:57)
[2019-02-24 13:06] VITALS: BP 143/89
--- NOTE | 2019-02-26 15:48 | Discharge Summary ---
ADMITTING PHYSICIAN AND SURGEON: Dr. Nicholas Daugherty. ADMITTING DIAGNOSIS: Right hip degenerative joint disease. SURGERY PERFORMED: Right total hip arthroplasty. SECONDARY DIAGNOSES: Elevated cholesterol, hypertension, significant alcohol intake. CONSULTS: None obtained. HISTORY AND PHYSICAL EXAMINATION: Well-documented in the patient's chart. HOSPITAL COURSE: The patient was admitted on 02/23/2019, underwent total hip arthroplasty, tolerated the procedure well. There were no complications. He was transferred to the PACU postoperatively and later to the orthopedic floor for further care. He was given Ancef for antibiotic prophylaxis, ERLIN stockings, SCDs and aspirin for DVT prophylaxis. Hemoglobin, hematocrit and vital signs were monitored during his hospital stay and remained stable, did not require any blood transfusions. There were no complications. By postoperative day 1, he was tolerating a regular diet, pain was controlled with oral pain medicine. He was participating in physical therapy. Postop day 1, he was discharged home, set up with home health services, given printed discharge instructions as well as new prescriptions for extra strength Tylenol, aspirin and tramadol. Continue his home medications, continue physical therapy, weightbearing as tolerated, ERLIN stockings, total hip precautions. Follow up approximately 2 weeks postop or sooner if there are any problems or concerns.
== END 2019-02-24 13:27 | disposition home health service (06) | DRG 470 ==
LOC: ASU 06:35 → 3E 10:21 → INTOOBSV 10:21

== ENCOUNTER 2023-03-28 18:26 | Observation (INO) ==
[2023-03-28 21:34] LABS: Basophils # (auto) 0.03 K/uL (0.00-0.20); Basophils % (auto) 0.5 %; Eosinophils # (auto) 0.07 K/uL (0.00-0.50); Eosinophils % (auto) 1.1 %; Hematocrit (blood only) 37.4 % (42.0-52.0); Hemoglobin 13.5 g/dl (14.0-18.0); Immature Granulocytes # (auto) 0.01 K/uL (0.01-0.20); Immature Granulocytes % (auto) 0.2 %; Lymphocytes # (auto) 1.15 K/uL (1.20-3.40); Lymphocytes % (auto) 17.8 %; Mean Corpuscular Hemoglobin 33.8 pg (25.0-34.0); Mean Corpuscular Hgb Conc 36.1 g/dL (32.0-36.0); Mean Corpuscular Volume 93.7 fL (80.0-100.0); Mean Platelet Volume 7.9 fL (9.4-12.4); Monocytes # (auto) 0.52 K/uL (0.11-0.59); Neutrophils # (auto) 4.69 K/uL (1.40-6.50); Neutrophils % (auto) 72.4 %; Platelet Count 218 K/uL (130-400); RDW Coefficient of Variation 11.2 % (11.5-14.5); RDW Standard Deviation 38.2 fL (36.4-46.3); Red Blood Count 3.99 M/uL (4.70-6.10); White Blood Count 6.47 K/ul (4.8-10.8)
[2023-03-28 21:48] LABS: Appearance Urine Clear (Clear); Bilirubin Urine Negative (Negative); Blood Urine Negative (Negative); Color Urine Yellow; Glucose Urine UA Negative (Negative); Ketones Urine Negative (Negative); Leukocyte Esterase Urine Negative (Negative); Nitrite Urine Negative (Negative); Protein Urine Negative (Negative); Specific Gravity Urine 1.003 (1.000-1.030); Urobilinogen Urine Negative (Negative); pH Urine 6.5 (4.5-7.5)
[2023-03-28 21:56] LABS: Albumin Globulin Ratio 1.3 (0.9-2); Albumin Level 4.4 gm/dl (3.4-5.0); BUN Creatinine Ratio 11.6 (10-20); Bilirubin,Total 0.6 mg/dl (0.2-1.0); Calcium 9.1 mg/dl (8.6-10.3); Creatinine Clr Calc Pharmacy 125.5 ml/min; Est GFR (African American) 115.5 ml/min; Est GFR (Non-African American) 99.6 ml/min; Globulin 3.5 gm/dl (2.5-4.0); Magnesium 2.1 mg/dl (1.7-2.4); Total Protein 7.9 gm/dl (6.0-8.3)
[2023-03-28 22:11] LABS: Thyroid Stimulating Hormone 2.556 uIu/ml (0.300-4.500)
[2023-03-28] MEDS: SODIUM CHLORIDE 0.9% 1,000 ML IV ONE (22:25)
--- NOTE | 2023-03-28 22:58 | History & Physical Report ---
Date of Service March 28, 2023 Assessment & Plan (1) Hyponatremia: (2) ETOH abuse: (3) Anxiety: (4) BPH w urinary obs/LUTS: Plan Hyponatremia -Outpatient blood work showed Na of 125, repeat in ED with Na of 125 -Baseline sodium for patient appears to be ~131, some level of chronic hyponatremia -Serum osmolality 280, urine osmolality pending -Patient endorses drinking about eight beers daily and six ~20 ounce bottles of water daily, typically eats a banana for breakfast and has one real "meal" per day -Will start with fluid restriction to 1500mL and begin 1g NaCl tabs BID, will monitor BMP q4h -EKG completed in ED, normal sinus rhythm per my interpretation -Monitor on telemetry and AWSS protocol as below Alcohol Use Disorder -Drinks about 8 beers daily per patient -Last drink at approximately 6pm today, patient states at last hospital admission he experienced withdraw symptoms but has never had seizures -Patient notes he is trying to reduce his alcohol intake but has struggled -Alcohol level pending. Folate, thiamine replacement ordered. -AWSS protocol ordered with seizure precautions Anxiety -Clonazepam BID PRN Hypertension -Continue amlodipine, irbesartan Admit to telemetry VTE Prophylaxis: early ambulation, SCDs Code Status: Full Code Diet: fluid restriction to 1500mLs History of Present Illness Primary Care Provider: Zeke Valles MD Finesse Adams is a 63 year-old male with a past medical history of BPH, HTN, melanoma, elevated LFTs, and alcohol use disorder who presents today after PCP referral due to hyponatremia. He completed routine blood work today and was found to have a low sodium level and was instructed to go to the ED. He states he has been feeling "completely fine", has not had shortness of breath/chest pain/headache/dizziness/confusion. 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 He states he usually drinks 8 beers per day and has been trying to cut back but it has been difficult, he notes he has had withdrawal symptoms in the past but has never had withdrawal seizures. He also notes that he typically will drink six bottles of water per day (~20 ounce each) and typically tries to avoid adding salt in his diet due to his hypertension. ED Course: -CMP, CBC -1L NSS bolus Allergies Allergy/AdvReac Type Severity Reaction Status Date / Time bee venom protein (honey bee) Allergy Severe FACIAL Verified 03/28/23 22:47 SWELLING Penicillins Allergy Unknown UNKNOWN - Verified 03/28/23 22:47 HAPPENED WHEN YOUNGER Home Medications Medication Instructions Recorded Confirmed Type sildenafil 100 mg tablet 100 mg PO UD PRN sexual activity 02/18/22 03/28/23 Rx #9 tabs aspirin 81 mg capsule 81 mg PO HS 03/03/22 03/28/23 History amlodipine 5 mg tablet 5 mg PO QAM 03/28/23 03/28/23 History clonazepam 0.5 mg tablet 0.5 mg PO BID PRN Anxiety 03/28/23 03/28/23 History epinephrine 0.3 mg/0.3 mL 0.3 mg IM .UD/PRN PRN Allergic 03/28/23 03/28/23 History injection, auto-injector Reaction irbesartan 300 mg tablet 300 mg PO QAM 03/28/23 03/28/23 History Past Med/Surg History Medical History History of blood transfusion 1981 BPH (benign prostatic hyperplasia) History of chemotherapy 07/2020-07/2021 History of colon polyps Metastatic cancer to axillary lymph nodes Malignant melanoma of upper back Degenerative joint disease of right hip Osteoarthritis Liver problem Congenitally small L hepatic lobe. Fatty liver dz. Hypertension Hypercholesterolemia hx-no meds Diverticulosis Anemia Surgical History History of esophagogastroduodenoscopy (EGD) last 01/27/22 @ [facility] H/O melanoma excision (07/09/20) Right Axillary [place] Lymph Node Biopsy(Right) - Rob Dawson DO, MARK Wide Local Excision Melanoma of Back - Rob Dawson DO, MARK Grade 1 view, MAC 3, ETT 7.5. History of total right hip arthroplasty February 2019-Dr. Daugherty 02/23/19 L3-L4 1 attempt. Hx of knee surgery LEFT Hx of shoulder surgery RT/LEFT Fusion of spine LUMBAR CERVICAL (GOOD ROM) History of colonoscopy History of appendectomy [place] teeth removed Family History Sister Family history of diabetes mellitus Grandmother (Paternal) Family history of diabetes mellitus Father Coronary heart disease Congestive heart failure Mother Thyroid cancer Anxiety Hypertension Other No family history of adverse response to anesthesia Denies family history of Ovarian cancer Prostate cancer Myocardial infarction Breast cancer Colorectal cancer Social History Smoking Status: Never smoker Tobacco Type: Smokeless Tobacco (Dip or Chew) Second Hand Exposure: No; Do You Dip or Chew Tobacco: No; Hx Alcohol Use: Yes Alcohol type: beer Alcohol Intake Frequency Comment: at times 6-10 beers per day. Hx Substance Use: No Preferred Language: Chinese Communication Ability: Effective Visual Impairment: No Limitations Hearing Ability: Normal Cooling Pan Tender Required: No Beliefs That Will Affect Care: None marital status: Current Living Situation: Spouse current occupational status: employed current occupation: [employer] Other Information That Helps Us Care for You: No Feels Safe at Home: Yes Safety Concerns: Feels Safe At This Time Childhood Exposure to Second-Hand Smoke: No Diet: regular caffeine: Yes during the past year weight has: remained stable Dental Care, Regularly: Yes Physical Activity Frequency: Daily Seatbelt Use: always Sunscreen Use: Yes Assistive Devices: Denture - Lower Review of Systems Review of Systems: As per above Physical Exam Constitutional: WD/WN, vitals as above Eyes: + anicteric sclerae; no conjunctival abn ormality ENMT: Ears: no external ear abnormality Nose: no external nose abnormality Moist mucous membranes Respiratory: normal respiratory effort, lungs clear to auscultation Cardiovascular: Rate/Rhythm: regular rate and regular rhythm Extremities: no edema Gastrointestinal (Abdomen): Inspection/Auscultation: abdomen not distended Percussion/Palpation: abdomen soft; abdomen nontender Musculoskeletal: Moves all limbs independently Skin: no rashes, warm and dry Neurologic: no focal motor deficits Psychiatric: A+Ox3, euthymic affect Results & Data Results & Data Vital Signs (Past 12 Hours) Vital Signs Temp Pulse Pulse Resp BP BP Pulse Ox 03/28/23 22:20 66 18 177/96 H 98 03/28/23 19:21 36.8 C 68 18 147/93 H 97 O2 Del Method 03/28/23 22:20 Room Air 03/28/23 19:21 Room Air Laboratory Results 03/28/23 Range/Units 21:25 WBC 6.47 (4.8-10.8) K/ul RBC 3.99 L (4.70-6.10) M/uL Hgb 13.5 L (14.0-18.0) g/dl Hct 37.4 L (42.0-52.0) % MCV 93.7 (80.0-100.0) fL MCH 33.8 (25.0-34.0) pg MCHC 36.1 H (32.0-36.0) g/dL RDW Std Deviation 38.2 (36.4-46.3) fL RDW Coeff of Amy 11.2 L (11.5-14.5) % Plt Count 218 (130-400) K/uL MPV 7.9 L (9.4-12.4) fL Immature Gran % (Auto) 0.2 % Neut % (Auto) 72.4 % Lymph % (Auto) 17.8 % [place] % (Auto) 8.0 % Eos % (Auto) 1.1 % Baso % (Auto) 0.5 % Neut # (Auto) 4.69 (1.40-6.50) K/uL Lymph # (Auto) 1.15 L (1.20-3.40) K/uL [place] # (Auto) 0.52 (0.11-0.59) K/uL Eos # (Auto) 0.07 (0.00-0.50) K/uL Baso # (Auto) 0.03 (0.00-0.20) K/uL Immature Gran # (Auto) 0.01 (0.01-0.20) K/uL Plt Count ,Citrate Cancelled Sodium 124 L (136-145) mmol/L Potassium 4.0 (3.5-5.1) mmol/L Chloride 92 L (98-107) mmol/L Carbon Dioxide 24 (21-32) mmol/L Anion Gap 8 (3-11) BUN 8 (6-23) mg/dl Creatinine 0.69 (0.6-1.4) mg/dl Est Cr Clr Drug Dosing 125.5 ml/min Est GFR ( Amer) 115.5 ml/min Est GFR (Non-Af Amer) 99.6 ml/min BUN/Creatinine Ratio 11.6 (10-20) Glucose 86 (70-99(Fasting)) mg/dl Osmolality 280 (280-300) mOsm/kg Calcium 9.1 (8.6-10.3) mg/dl Magnesium 2.1 (1.7-2.4) mg/dl Total Bilirubin 0.6 (0.2-1.0) mg/dl AST 36 (13-39) U/L ALT 25 (7-52) U/L Alkaline Phosphatase 107 H (34-104) U/L Total Protein 7.9 (6.0-8.3) gm/dl Albumin 4.4 (3.4-5.0) gm/dl Globulin 3.5 (2.5-4.0) gm/dl Albumin/Globulin Ratio 1.3 (0.9-2) TSH 2.556 (0.300-4.500) uIu/ml Urine Color Yellow Urine Appearance Clear (Clear) Urine pH 6.5 (4.5-7.5) Ur Specific [place] 1.003 (1.000-1.030) Urine Protein Negative (Negative) Urine Glucose (UA) Negative (Negative) Urine Ketones Negative (Negative) Urine Blood Negative (Negative) Urine Nitrite Negative (Negative) Urine Bilirubin Negative (Negative) Urine Urobilinogen Negative (Negative) Ur Leukocyte Esterase Negative (Negative) Supervising Physician Co-Signing Physician Notes Attending addendum: I have physically seen this patient, have supervised the medical residents activities, and agree with the H&P unless as otherwise noted. Assessment and Plan: Hyponatremia- Sodium as outpatient 125, repeat in the ED 124 Serum osmolality 280 Urine osmolality 121 Fluid restrict to 1500 cc Sodium chloride 1 g p.o. twice daily first dose tonight Serial laboratories in the a.m. Element of polydipsia and beer [place] Alcohol abuse history- Alcohol level 28.3 AWSS protocol with Ativan Thiamine 100 mg IV every morning Folic acid 1 mg every morning Hypertension- Continue amlodipine, irbesartan with hold parameters Resident Activity Tracking Resident Involvement: Resident Care Provided Care Provided: Adult [facility]
[2023-03-28] MEDS: SODIUM CHLORIDE 1 GM TABLET PO STA (23:21)
[2023-03-28] MEDS ORDERED: LORazepam 1 MG TAB PO PRN ×3 (23:39)
[2023-03-28] MEDS ORDERED: POLYETHYLENE (MIRALAX) 17 GM PACK PO PRN (23:39)
[2023-03-28] MEDS ORDERED: Ativan PO Alcohol Withdrawal--Active Protocol PO PRN (23:39)
[2023-03-28] MEDS ORDERED: clonazePAM 0.5 MG TAB PO PRN (23:39)
[2023-03-28] MEDS ORDERED: ACETAMINOPHEN 325 MG TAB PO PRN (23:39)
[2023-03-29 00:05] LABS: BUN Creatinine Ratio 12.1 (10-20); Calcium 8.6 mg/dl (8.6-10.3); Creatinine Clr Calc Pharmacy 131.2 ml/min; Est GFR (African American) 117.6 ml/min; Est GFR (Non-African American) 101.5 ml/min; Potassium 3.8 mmol/L (3.5-5.1)
--- NOTE | 2023-03-29 00:10 | Emergency Department Note ---
History of Present Illness General Chief complaint: Abnormal Labs/Diagnostic Testing Stated complaint: SODIUM LEVEL LOW, DOC REF History of Present Illness This 63-year-old male presents the ER for abnormal labs. he states he went to the family doctor for routine blood work. And was told to come here as his sodium is low Patient denies chest pain, dyspnea, lightheadedness, dizziness, abdominal pain or any other medical complaints.. Home Medications Medication Instructions Recorded Confirmed Type sildenafil 100 mg tablet 100 mg PO UD PRN sexual activity 02/18/22 03/28/23 Rx #9 tabs aspirin 81 mg capsule 81 mg PO HS 03/03/22 03/28/23 History amlodipine 5 mg tablet 5 mg PO QAM 03/28/23 03/28/23 History clonazepam 0.5 mg tablet 0.5 mg PO BID PRN Anxiety 03/28/23 03/28/23 History epinephrine 0.3 mg/0.3 mL 0.3 mg IM .UD/PRN PRN Allergic 03/28/23 03/28/23 History injection, auto-injector Reaction irbesartan 300 mg tablet 300 mg PO QAM 03/28/23 03/28/23 History [id number] acid 0.4 1 tab PO QAM #0 tabs 03/29/23 Rx mg-lycopene 300 mcg-lutein 250 mcg tablet (Cerovite Senior) Allergies Allergy/AdvReac Type Severity Reaction Status Date / Time bee venom protein (honey bee) Allergy Severe FACIAL Verified 03/28/23 22:47 SWELLING Penicillins Allergy Unknown UNKNOWN - Verified 03/28/23 22:47 HAPPENED WHEN YOUNGER Past Med/Surg History Medical History History of blood transfusion 1981 BPH (benign prostatic hyperplasia) History of chemotherapy 07/2020-07/2021 History of colon polyps Metastatic cancer to axillary lymph nodes Malignant melanoma of upper back Degenerative joint disease of right hip Osteoarthritis Liver problem Congenitally small L hepatic lobe. Fatty liver dz. Hypertension Hypercholesterolemia hx-no meds Diverticulosis Anemia Surgical History History of esophagogastroduodenoscopy (EGD) last 01/27/22 @ [facility] H/O melanoma excision (07/09/20) Right Axillary [place] Lymph Node Biopsy(Right) - Rob Dawson DO, FACS Wide Local Excision Melanoma of Back - Rob Dawson DO, FACS Grade 1 view, MAC 3, ETT 7.5. History of total right hip arthroplasty February 2019-Dr. Daugherty 02/23/19 L3-L4 1 attempt. Hx of knee surgery LEFT Hx of shoulder surgery RT/LEFT Fusion of spine LUMBAR CERVICAL (GOOD ROM) History of colonoscopy History of appendectomy [place] teeth removed Family History Sister Family history of diabetes mellitus Grandmother (Paternal) Family history of diabetes mellitus Father Coronary heart disease Congestive heart failure Mother Thyroid cancer Anxiety Hypertension Other No family history of adverse response to anesthesia Denies family history of Ovarian cancer Prostate cancer Myocardial infarction Breast cancer Colorectal cancer Social History Smoking Status: Never smoker Tobacco Type: Smokeless Tobacco (Dip or Chew) Second Hand Exposure: No; Do You Dip or Chew Tobacco: No; Hx Alcohol Use: Yes Alcohol type: beer Alcohol Intake Frequency Comment: at times 6-10 beers per day. 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 Required: No Beliefs That Will Affect Care: None marital status: Current Living Situation: Spouse current occupational status: employed current occupation: [employer] [facility] [employer] Feels Safe at Home: Yes Childhood Exposure to Second-Hand Smoke: No Diet: regular caffeine: Yes during the past year weight has: remained stable Dental Care, Regularly: Yes Physical Activity Frequency: Daily Seatbelt Use: always Sunscreen Use: Yes Assistive Devices: None Review of Systems A total of 10 systems reviewed and were otherwise negative Physical Exam Vital Signs Vital Signs - 24 hr 03/28/23 19:21 03/28/23 22:20 Temperature 36.8 C Temperature Source Temporal Artery Scan Pulse Rate 68 Pulse Rate [Apical] 66 Respiratory Rate 18 18 Respiratory Depth Normal Blood Pressure 147/93 H Blood Pressure [Right Arm] 177/96 H Blood Pressure Mean 111 Blood Pressure Mean [Right Arm] 123 Pulse Oximetry 97 98 Oxygen Delivery Method Room Air Room Air Sepsis Recent Fever Within 48 Hours No Sepsis New/Unexplained Change in Mental Status N/A Sepsis Action Taken by Nursing No Action Required VITALS: Vitals are noted on the nurse's note and reviewed by myself. Vital signs stable. GENERAL: Pleasant gentleman, in no acute distress, nondiaphoretic, well- developed well-nourished. SKIN: Capillary reflex less than 2 seconds. HEENT: Normocephalic. PERRLA. EOMI. Nares patent. Mucous membranes moist. Neck is supple without nuchal rigidity. HEART: Regular rate and rhythm LUNGS: Clear to auscultation bilaterally without wheezes, rales or rhonchi. No retractions or accessory muscle use. ABDOMEN: Positive bowel sounds x 4. Normal tympanic percussion. Soft, nontender, without masses or organomegaly. Jett sign negative. No guarding or rebound tenderness. no CVA tenderness MUSCULOSKELETAL: No gross musculoskeletal defects. NEURO: Patient was alert and oriented to person place and time. No focal neurological deficits. Course Administered Medications Discontinued Medications Amlodipine Besylate (Amlodipine Besylate 5 Mg Tab) 5 mg PO QAM [facility] Stop: 04/28/23 08:59 Last Admin: 03/29/23 08:40 Dose: 5 mg Documented By: ALAN Folic Acid (Folic Acid 1 Mg Tab) 1 mg PO QAM [facility] Stop: 04/28/23 08:59 Last Admin: 03/29/23 08:40 Dose: 1 mg Documented By: ALAN Sodium Chloride (Nss) 1,000 mls @ 999 mls/hr IV .Q1H1M ONE Stop: 03/28/23 23:13 Last Infusion: 03/29/23 00:04 Dose: Infused Documented By: Admin: 03/28/23 22:25 Dose: 999 mls/hr Documented By: TAM Lorazepam (Lorazepam 1 Mg Tab) 1 mg PO Q6H PRN PRN Reason: Anxiety Stop: 04/28/23 08:01 Last Admin: 03/29/23 08:42 Dose: 1 mg Documented By: ALAN Losartan Potassium (Losartan Potassium 50 Mg Tab) 100 mg PO DAILY CHARLIE Stop: 04/28/23 08:59 Last Admin: 03/29/23 08:41 Dose: 100 mg Documented By: ALAN Multivitamins/Minerals (Cerovite Adv Formula Tab) 1 tab PO QAM CHARLIE Stop: 04/28/23 08:59 Last Admin: 03/29/23 08:41 Dose: 1 tab Documented By: ALAN Pantoprazole Sodium (Pantoprazole 40 Mg Tab) 40 mg PO QAM CHARLIE Stop: 04/28/23 08:59 Last Admin: 03/29/23 08:42 Dose: 40 mg Documented By: ALAN Sodium Chloride (Sodium Chloride 1 Gm Tablet) 1 gm PO NOW STA Stop: 03/28/23 22:51 Last Admin: 03/28/23 23:21 Dose: 1 gm Documented By: JASON Medical Decision Making Medical Records Attestation: I reviewed the patient's medical records. Home Medications Current Medication List: was personally reviewed by me Laboratory Data Attestation: I reviewed the patient's lab results. 03/29/23 03:08 03/29/23 07:21 Lab Results 03/28/23 Range/Units 21:25 WBC 6.47 (4.8-10.8) K/ul RBC 3.99 L (4.70-6.10) M/uL Hgb 13.5 L (14.0-18.0) g/dl Hct 37.4 L (42.0-52.0) % MCV 93.7 (80.0-100.0) fL MCH 33.8 (25.0-34.0) pg MCHC 36.1 H (32.0-36.0) g/dL RDW Std Deviation 38.2 (36.4-46.3) fL RDW Coeff of Amy 11.2 L (11.5-14.5) % Plt Count 218 (130-400) K/uL MPV 7.9 L (9.4-12.4) fL Immature Gran % (Auto) 0.2 % Neut % (Auto) 72.4 % Lymph % (Auto) 17.8 % [place] % (Auto) 8.0 % Eos % (Auto) 1.1 % Baso % (Auto) 0.5 % Neut # (Auto) 4.69 (1.40-6.50) K/uL Lymph # (Auto) 1.15 L (1.20-3.40) K/uL [place] # (Auto) 0.52 (0.11-0.59) K/uL Eos # (Auto) 0.07 (0.00-0.50) K/uL Baso # (Auto) 0.03 (0.00-0.20) K/uL Immature Gran # (Auto) 0.01 (0.01-0.20) K/uL Plt Count ,Citrate Cancelled Sodium 124 L (136-145) mmol/L Potassium 4.0 (3.5-5.1) mmol/L Chloride 92 L (98-107) mmol/L Carbon Dioxide 24 (21-32) mmol/L Anion Gap 8 (3-11) BUN 8 (6-23) mg/dl Creatinine 0.69 (0.6-1.4) mg/dl Est Cr Clr Drug Dosing 125.5 ml/min Est GFR ( Amer) 115.5 ml/min Est GFR (Non-Af Amer) 99.6 ml/min BUN/Creatinine Ratio 11.6 (10-20) Glucose 86 (70-99(Fasting)) mg/dl Osmolality 280 (280-300) mOsm/kg Calcium 9.1 (8.6-10.3) mg/dl Magnesium 2.1 (1.7-2.4) mg/dl Total Bilirubin 0.6 (0.2-1.0) mg/dl AST 36 (13-39) U/L ALT 25 (7-52) U/L Alkaline Phosphatase 107 H (34-104) U/L Total Protein 7.9 (6.0-8.3) gm/dl Albumin 4.4 (3.4-5.0) gm/dl Globulin 3.5 (2.5-4.0) gm/dl Albumin/Globulin Ratio 1.3 (0.9-2) TSH 2.556 (0.300-4.500) uIu/ml Urine Color Yellow Urine Appearance Clear (Clear) Urine pH 6.5 (4.5-7.5) Ur Specific Kelly 1.003 (1.000-1.030) Urine Protein Negative (Negative) Urine Glucose (UA) Negative (Negative) Urine Ketones Negative (Negative) Urine Blood Negative (Negative) Urine Nitrite Negative (Negative) Urine Bilirubin Negative (Negative) Urine Urobilinogen Negative (Negative) Ur Leukocyte Esterase Negative (Negative) MDM Narrative Prior records/ancillary studies reviewed and summarized above. Nursing notes reviewed. Additional history obtained from family. The patient's history was concerning for abnormal labs. Differential diagnosis: Etiologies such as metabolic, infection, hypo/hyperglycemia, electrolyte abnormalities, cardiac sources, intracerebral event, toxicologic, neurologic, as well as others were entertained. Physical examination: As above. ER treatment provided: IV Lock An order was placed for continuous cardiac monitoring. The monitor shows a rate of 60-100 with a sinus rhythm per my interpretation. IV fluids On reassessment the patient felt better. Diagnostics interpretation by me: ECG: Ordered for weakness EKG: Normal sinus, normal intervals, no acute ST-T changes. Impression normal sinus rhythm independently interpreted by myself I think arrhythmia is unlikely. EKG shows normal sinus rhythm with no interval abnormalities such as QT prolongation or WPW. There are no findings to suggest Brugada syndrome. Cardiac monitoring in the emergency department reveals no tachycardic or bradycardic dysrhythmia. Hypertrophic cardiomyopathy was considered but there are no clear historical elements pointing toward this. EKG is not suggestive. The QRS voltage is not extremely large and there are no suggestive Q waves. The labs Independently Interpreted by myself revealed hyponatremia and osmolarity levels were ordered Consultation: A consultation was placed with the hospitalist. The case was discussed and diagnostics were reviewed. The patient was evaluated in the ER for further treatment. Exam and history seem consistent with hyponatremia most likely from alcohol abuse. Patient was given fluids as above. Medicine was consulted and case discussed. Will be admitted to the medical service for further evaluation and workup. By the evaluation outlined above emergent etiologies such as infection, cardiac sources, intracerebral event, toxologic, neurologic, abnormalities blood glucose, metabolic, as well as others were deemed relatively unlikely. The pt informed about the findings as listed above. All questions were answered and pleased with the treatment. The chart was completed utilizing Tangled Speech voice recognition software. Grammatical errors, random word insertions, pronoun errors, and incomplete sentences are an occassional consequence of this system due to software limitations, ambient noise, and hardware issues. Any formal questions or concerns about the content, text, or information contained within the body of this dictation should be directly addressed to the physician computer assistant for clarification. Impression & Plan Hyponatremia Discharge Plan Visit Data Chief Complaint: Abnormal Labs/Diagnostic Testing Stated Complaint: SODIUM LEVEL LOW, DOC REF ED Provider: Sandro Arias ED Midlevel Provider: Nallely Paul Discharge Problem: Hyponatremia Patient Disposition: Admitted As Inpatient Condition: Good Discharge Instructions Interventions: ED Discharge Assessment Last Done: 03/28/23 23:39 Addendum March 29, 2023 17:06 I was consulted by the Advanced Practice Provider and was substantively involved in the patient's visit.This includes aspects of the HPI, MDM, diagnostic interpretations, and disposition/plan. I discussed the case with the GIANLUCA and agree with the findings and plan as documented in GIANLUCA Paul's note.
[2023-03-29 03:32] LABS: Basophils # (auto) 0.03 K/uL (0.00-0.20); Basophils % (auto) 0.7 %; Eosinophils # (auto) 0.07 K/uL (0.00-0.50); Eosinophils % (auto) 1.6 %; Hematocrit (blood only) 36.8 % (42.0-52.0); Hemoglobin 12.9 g/dl (14.0-18.0); Lymphocytes # (auto) 0.91 K/uL (1.20-3.40); Lymphocytes % (auto) 20.3 %; Mean Corpuscular Hemoglobin 33.5 pg (25.0-34.0); Mean Corpuscular Hgb Conc 35.1 g/dL (32.0-36.0); Mean Corpuscular Volume 95.6 fL (80.0-100.0); Mean Platelet Volume 8.5 fL (9.4-12.4); Monocytes # (auto) 0.48 K/uL (0.11-0.59); Monocytes % (auto) 10.7 %; Neutrophils % (auto) 66.7 %; Platelet Count 203 K/uL (130-400); RDW Coefficient of Variation 11.4 % (11.5-14.5); RDW Standard Deviation 40.1 fL (36.4-46.3); Red Blood Count 3.85 M/uL (4.70-6.10); White Blood Count 4.49 K/ul (4.8-10.8)
[2023-03-29 03:43] LABS: Albumin Globulin Ratio 1.4 (0.9-2); Albumin Level 4.2 gm/dl (3.4-5.0); BUN Creatinine Ratio 13.1 (10-20); Bilirubin,Total 0.7 mg/dl (0.2-1.0); Calcium 8.8 mg/dl (8.6-10.3); Creatinine Clr Calc Pharmacy 140.2 ml/min; Est GFR (African American) 121.5 ml/min; Est GFR (Non-African American) 104.8 ml/min; Potassium 4.2 mmol/L (3.5-5.1); Total Protein 7.2 gm/dl (6.0-8.3)
--- NOTE | 2023-03-29 05:35 | Billing Data ---
Date of Service March 29, 2023 Coding Level of Care Code 01521 INT INP/OBS CARE
[2023-03-29 07:58] LABS: BUN Creatinine Ratio 11.8 (10-20); Calcium 8.9 mg/dl (8.6-10.3); Creatinine Clr Calc Pharmacy 125.8 ml/min; Est GFR (African American) 116.2 ml/min; Est GFR (Non-African American) 100.2 ml/min; Potassium 4.3 mmol/L (3.5-5.1)
[2023-03-29] MEDS: amLODIPine BESYLATE 5 MG TAB PO SCH (08:40)
[2023-03-29] MEDS: FOLIC ACID 1 MG TAB PO SCH (08:40)
[2023-03-29] MEDS: LOSARTAN POTASSIUM 50 MG TAB PO SCH (08:41)
[2023-03-29] MEDS: CEROVITE ADV FORMULA TAB PO SCH (08:41)
[2023-03-29] MEDS: PANTOprazole 40 MG TAB PO SCH (08:42)
[2023-03-29] MEDS: LORazepam 1 MG TAB PO PRN (08:42)
[2023-03-29] MEDS ORDERED: THIAMINE HCL 100 MG in SYRINGE 9 ML IV SCH (09:00)
[2023-03-29] MEDS ORDERED: SODIUM CHLORIDE 1 GM TABLET PO SCH (09:00)
--- NOTE | 2023-03-29 11:15 | Electrocardiogram Report ---
Test Reason : Blood Pressure : / mmHG Vent. Rate : 062 BPM Atrial Rate : 062 BPM P-R Int : 208 ms QRS Dur : 086 ms QT Int : 426 ms P-R-T Axes : 041 020 022 degrees QTc Int : 432 ms Normal sinus rhythm Normal ECG When compared with ECG of 02-MAR-2022 09:45, No significant change was found Confirmed by Zeke Morris ([id number]) on 03/29/2023 11:15:11 AM Referred By: Mk Valles Confirmed By:Mk Morris
--- NOTE | 2023-03-29 11:44 | Discharge Summary ---
Date of Service March 29, 2023 Admission HPI Per Admitting Provider Finesse Adams is a 63 year-old male with a past medical history of BPH, HTN, melanoma, elevated LFTs, and alcohol use disorder who presents today after PCP referral due to hyponatremia. He completed routine blood work today and was found to have a low sodium level and was instructed to go to the ED. He states he has been feeling "completely fine", has not had shortness of breath/chest pain/headache/dizziness/confusion. 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 He states he usually drinks 8 beers per day and has been trying to cut back but it has been difficult, he notes he has had withdrawal symptoms in the past but has never had withdrawal seizures. He also notes that he typically will drink six bottles of water per day (~20 ounce each) and typically tries to avoid adding salt in his diet due to his hypertension. ED Course: -CMP, CBC -1L NSS bolus Principal Diagnosis Mild hyponatremia due to polydipsia Discharge Exam General-alert and oriented x3, no fever, no chills HEENT-head atraumatic and normocephalic, pupils equal and reactive to light, extraocular muscles intact Neck-no lymphadenopathy or thyromegaly, trachea midline Chest-clear to auscultation. No rales wheezing or rhonchi Cardiac-regular rate and rhythm, normal S1 and S2 Abdomen-normal bowel sounds, nontender, no hepatosplenomegaly Extremities-no cyanosis, clubbing, or edema Neuro-cranial nerves II through XII intact, motor and sensory function within normal limits, strength symmetrical, no focal deficits Psych-normal affect, normal mood Discharge Data Allergies Allergy/AdvReac Type Severity Reaction Status Date / Time bee venom protein (honey bee) Allergy Severe FACIAL Verified 03/28/23 22:47 SWELLING Penicillins Allergy Unknown UNKNOWN - Verified 03/28/23 22:47 HAPPENED WHEN YOUNGER Consultations 03/28/23 21:47 ED Decision to Admit Stat Hospital Course (1) Hyponatremia: Due to polydipsia. Serum osmolarity is normal. He was encouraged to decrease his oral water intake which he agrees to do. He is asymptomatic. Sodium has improved from 125 up to 128. This can be repeated further as an outpatient. (2) ETOH abuse: The patient was cautioned about his alcohol intake and encouraged to decrease his drink (3) Anxiety: Stable. Continue current medical management (4) BPH w urinary obs/LUTS: Stable. Continue current medical management Plan Home today, March 29 Total Time Total Time Spent Total Time Spent (In Minutes): 45 minutes Discharge Plan Discharge Items Patient Disposition: Home - Self-Care Reason For Visit: HYPONATREMIA Discharge Diagnosis: Asymptomatic hyponatremia due to polydipsia Condition on Discharge: Good Activity: Resume your previous activity Non-emergency contact: Primary Care Provider Call non-emergency contact if: your symptoms worsen Follow-up/Referrals: Zeke Valles MD [Primary Care Provider] - Diet: Regular Addtl Attending Provider Instructions: Decrease water intake to drinking only with meals and if feeling thirsty. Take a multivitamin daily Pending Studies at Discharge: No Stand-Alone Forms: My [employer], Smoking Cessation Medications and DC Order Prescriptions: New Cerovite Senior 0.4 mg-300 mcg- 250 mcg Tablet 1 tab PO QAM Qty: 0 0RF Continued sildenafil 100 mg tablet 100 mg PO UD PRN (Reason: sexual activity) Qty: 9 5RF Rx Instructions: administer 30 minutes to 4 hours before activity aspirin 81 mg Capsule 81 mg PO HS amlodipine 5 mg tablet 5 mg PO QAM irbesartan 300 mg tablet 300 mg PO QAM clonazepam 0.5 mg tablet 0.5 mg PO BID PRN (Reason: Anxiety) epinephrine 0.3 mg/0.3 mL auto-injector 0.3 mg IM .UD/PRN PRN (Reason: Allergic Reaction) Discharge Orders: Discharge Order (Routine); Ordered 03/29/23 Ordered By: Jim Lee Admission Data Admit Date/Time: 03/28/23 22:49 Attending Provider: Jim Lee Admit Provider: Maddi Bardales Primary Care Provider: Zeke Valles Other Providers: Michael Leblanc Coding Level of Care Code 89124 INP/OBS DISCH >30 MIN Diagnoses Hyponatremia E87.1 ETOH abuse F10.10 Anxiety F41.9 BPH w urinary obs/LUTS N40.1; N13.8
[2023-03-29] MEDS ORDERED: ASPIRIN 81 MG ECTAB PO SCH (21:00)
== END 2023-03-29 12:44 | disposition home or self-care (01) ==
LOC: ED 18:26 → EDINP 18:26 → SUATTDRO 22:49 → EDINP 23:39 → 2S 03-29 02:46